=== PATIENT | male | born 1975 | race Caucasian/White ===

== ENCOUNTER 2016-08-16 07:48 | Observation (INO) | payer OTHER ==
[~2016-08-16] VITALS: Ht 190.5 cm; Wt 102.1 kg
[2016-08-16 08:45] LABS: HEMOGLOBIN 15.1 gm/dl (14.0-17.5); RED BLOOD COUNT 4.64 M/UL (4.20-5.50); WHITE BLOOD COUNT 10.4 K/UL (4.5-11.0)
[2016-08-16 09:07] LABS: BUN/CREATININE RATIO 11 (0-10)
[2016-08-17 03:49] LABS: HEMOGLOBIN 13.8 gm/dl (14.0-17.5); RED BLOOD COUNT 4.29 M/UL (4.20-5.50)
[2016-08-17 04:10] LABS: BUN/CREATININE RATIO 14 (0-10)
[2016-08-17] MEDS ORDERED: ELIQUIS5 MG PO (13:37)
[2016-08-18] MEDS ORDERED: TYLENOL 325MG325 MG PO (14:12)
[2016-08-18] MEDS ORDERED: HABITROL 21 MG P1 EA TD (14:13)
== END 2016-08-18 14:30 | disposition home or self-care (01) ==
LOC: ER1 07:48 → EDBD 07:48 → PROG CARE 13:25 → ZEROF 13:25 → PROG CARE 23:37
PROVIDERS: Family Medicine; ADMIT Internal Medicine Infectious Disease
DX: I26.99 Other pulmonary embolism without acute cor pulmonale (principal); R07.81 Pleurodynia; I82.402 Acute embolism and thrombosis of unspecified deep veins of left lower extremity; D69.6 Thrombocytopenia, unspecified; E87.2 Acidosis; R73.9 Hyperglycemia, unspecified; F17.210 Nicotine dependence, cigarettes, uncomplicated; Z88.1 Allergy status to other antibiotic agents
CPT/HCPCS: ECHO; 36415; 71020; 80048; 80053; 81240; 81241; 81291; 82550; 82553; 82607; 82746; 82803; 83036; 83605; 83735; 83874; 83880; 83921; 84484; 85025; 85027; 85300; 85303; 85379; 85610; 85611; 85730; 85732; 86039; 87040; 93005; 93306; 93970; 94640; 94664; 96361; 96372; 96374; 96375; 99291; G0378; J1644; J1650; J2543; J2930; J7030; J7040; J7050; Q9963

== ENCOUNTER 2020-04-07 12:53 | Emergency (ER) | payer OTHER ==
[~2020-04-07 12:53] MED LIST: ELIQUIS5 MG PO; HABITROL 21 MG P1 EA TD; TYLENOL 325MG325 MG PO
[2020-04-07 14:09] LABS: HEMOGLOBIN 11.2 gm/dl (14.0-17.5); RED BLOOD COUNT 3.88 M/UL (4.20-5.50)
[2020-04-07 14:38] LABS: BUN/CREATININE RATIO 16 (0-10)
[2020-04-07 19:46] LABS: HEMOGLOBIN 9.9 gm/dl (14.0-17.5); WHITE BLOOD COUNT 11.5 K/UL (4.5-11.0)
[2020-04-07 19:47] LABS: RED BLOOD COUNT 3.35 M/UL (4.20-5.50)
[2020-04-07 20:11] LABS: BUN/CREATININE RATIO 21 (0-10)
[2020-04-07] MEDS ORDERED: DAILY VALUE1 EACH PO (23:57)
[2020-04-08 01:56] LABS: HEMOGLOBIN 8.8 gm/dl (14.0-17.5); RED BLOOD COUNT 3.04 M/UL (4.20-5.50); WHITE BLOOD COUNT 9.4 K/UL (4.5-11.0)
[2020-04-08 02:30] LABS: BUN/CREATININE RATIO 20 (0-10)
== END 2020-04-08 02:35 | disposition other institution (70) ==
LOC: ER1 12:53
PROVIDERS: Emergency Medicine; Family Medicine; Internal Medicine
DX: I26.99 Other pulmonary embolism without acute cor pulmonale (principal); R91.8 Other nonspecific abnormal finding of lung field; D64.9 Anemia, unspecified; R04.0 Epistaxis; D72.829 Elevated white blood cell count, unspecified; N17.9 Acute kidney failure, unspecified; R79.89 Other specified abnormal findings of blood chemistry; R79.1 Abnormal coagulation profile; F17.200 Nicotine dependence, unspecified, uncomplicated; Z86.711 Personal history of pulmonary embolism; Z88.1 Allergy status to other antibiotic agents
CPT/HCPCS: 71045; 80048; 80053; 82550; 82553; 83874; 84484; 85025; 85027; 85379; 85610; 85730; 87040; 93005; 96365; 96366; 96375; 96376; 99285; J1644; J2405; J7030; Q9963; Q9967